=== PATIENT | female | born 1945 | race Two or more races ===

== ENCOUNTER 2020-02-25 14:58 | Outpatient (CLI) | payer OTHER ==
[2020-02-25] MEDS ORDERED: AZELASTIN-FLUTI23 GM NASAL (15:22)
[2020-02-25] MEDS ORDERED: DERMOTIC20 ML OTIC (15:22)
[2020-02-25] MEDS ORDERED: PRILOSEC OTC20 MG PO (15:23)
[2020-02-25] MEDS ORDERED: MECLIZINE HCL12.5 MG PO (15:23)
[2020-02-25] MEDS ORDERED: PEPCID AC20 MG PO (15:24)
== END 2020-02-25 15:00 | disposition home or self-care (01) ==
LOC: OFIC 805 14:58
PROVIDERS: ATTEND Otolaryngology
DX: K14.1 Geographic tongue (principal); L30.8 Other specified dermatitis

== ENCOUNTER 2020-03-24 14:16 | Outpatient (CLI) | payer OTHER ==
[~2020-03-24 14:16] MED LIST: AZELASTIN-FLUTI23 GM NASAL; DERMOTIC20 ML OTIC; MECLIZINE HCL12.5 MG PO; PEPCID AC20 MG PO; PRILOSEC OTC20 MG PO
== END 2020-03-24 15:00 | disposition home or self-care (01) ==
LOC: OFIC 805 14:16
PROVIDERS: ATTEND Otolaryngology
DX: K21.0 Gastro-esophageal reflux disease with esophagitis (principal); L30.8 Other specified dermatitis; K14.1 Geographic tongue

== ENCOUNTER → 2021-07-13 08:01 | Outpatient (CLI) | payer OTHER | END | disposition home or self-care (01) | LOC: LAB 08:01 | PROVIDERS: ATTEND Internal Medicine Hematology & Oncology | DX: D50.8 Other iron deficiency anemias (principal); R79.89 Other specified abnormal findings of blood chemistry; I10 Essential (primary) hypertension; R74.02 Elevation of levels of lactic acid dehydrogenase [LDH]; K76.89 Other specified diseases of liver; R70.0 Elevated erythrocyte sedimentation rate; D63.8 Anemia in other chronic diseases classified elsewhere; D55.0 Anemia due to glucose-6-phosphate dehydrogenase [G6PD] deficiency; D51.1 Vitamin B12 deficiency anemia due to selective vitamin B12 malabsorption with proteinuria; D51.0 Vitamin B12 deficiency anemia due to intrinsic factor deficiency; D63.1 Anemia in chronic kidney disease; D75.1 Secondary polycythemia; I48.21 Permanent atrial fibrillation; E03.8 Other specified hypothyroidism; G47.33 Obstructive sleep apnea (adult) (pediatric); D64.89 Other specified anemias ==

== ENCOUNTER → 2023-03-22 | Outpatient (CLI) | payer OTHER | END | disposition home or self-care (01) | LOC: RAD 12:05 | PROVIDERS: ATTEND Internal Medicine Pulmonary Disease | DX: R05.3 Chronic cough (principal); K76.0 Fatty (change of) liver, not elsewhere classified; A31.0 Pulmonary mycobacterial infection ==